=== PATIENT | female | born 1995 | race Caucasian/White ===

== ENCOUNTER 2017-03-26 23:38 | Emergency (ER) | payer SELFPAY ==
[~2017-03-26] VITALS: Ht 162.6 cm; Wt 95.3 kg
[2017-03-26] MEDS ORDERED: HYDR10TA3 PO (23:44)
--- NOTE | 2017-03-27 00:15 | RADIOLOGY IMAGING REPORT ---
FACILITY: [facility] PATIENT NAME: María Salcedo : 1995 MR: [id number] V: [id number] EXAM DATE: ORDERING PHYSICIAN: ABHI FRAZIER TECHNOLOGIST: Location: [facility] Patient: María Salcedo : 1995 Visit/Account:[id number] Date of Sevice: 03/26/2017 HAND COMPLETE LEFT HISTORY: Injury to left third and fourth fingers and hand. COMPARISON: None. TECHNIQUE: PA, oblique, and lateral views of the left hand. FINDINGS: There is no fracture or dislocation. There is mild soft tissue swelling of the proximal fou rth phalanx. IMPRESSION: 1. No acute osseous abnormality of the left hand. Report Dictated By: Melissa Curtis at 03/27/2017 12:09 AM Report E-Signed By: Melissa Curtis at 03/27/2017 12:11 AM WSN:[id number]
[2017-03-27] MEDS ORDERED: DIPHTH/TETANUS/ACEL. PERTUSSIS IM ONLY ONE (00:35)
[2017-03-27] MEDS ORDERED: CEPHALEXIN MONO 500 MG CAP PO ONE (00:35)
[2017-03-27] MEDS ORDERED: CEPH500C24 PO (00:36)
--- NOTE | 2017-03-27 00:36 | ER Report ---
History and Physical Time Seen By MD: 23:44 Hx. of Stated Complaint: PT CRUSHED MIDDLE AND FOURTH FINGER OF LEFT HAND BETWEEN WALL AND BOOKSHELF. HPI/ROS CHIEF COMPLAINT: injury to hand and fingers HISTORY OF PRESENT ILLNESS: This is a 22 year old female. She was carrying a metal shelf and somehow it went one way causing an injury to her left hand and her 3rd and 4th fingers. Pain and swelling over the proximal phalanx of these fingers. Has a cut on the volar surface of the 4th finger. Normal sensation. Can move them, but hurts to do so. Last tetanus was 2011 or 2012. Allergies: Coded Allergies: No Known Drug Allergies (Unverified , 03/26/17) Home Meds Active Scripts Cephalexin Monohydrate (CEPHALEXIN) 500 Mg Cap, 500 MG PO Q6H, #20 CAP 0 Refills Prov:ABHI FRAZIER MD 03/27/17 Reported Medications Hydroxyzine Hcl (HYDROXYZINE HCL) 10 Mg Tablet, 10 MG PO QID Y for ANXIETY 03/26/17 Reviewed Nurses Notes: Yes Hx Substance Use Disorder: No Hx Alcohol Use: No Constitutional Vital Sign - Last 24 Hours 03/26/17 03/27/17 23:44 00:41 Temp 98.8 Pulse 104 85 Resp 14 16 B/P (MAP) 149/100 132/82 (99) Pulse Ox 97 92 O2 Delivery Room Air Room Air Physical Exam General: Alert, no acute distress. Musculoskeletal: Swelling with some bruising of the proximal phalanx of 3rd and 4th fingers, pain with palpation of this area and onto the hand over the metacarpals. Motor function is intact, but with pain. Normal flexion and extension strength/resistance. Skin: Shallow laceration just distal to the MCP joint of 4th finger. Neuro: Normal sensation. Cardiovascular: Normal capillary refill. Medical Decision Making EKG/Imaging Imaging HAND COMPLETE LEFT HISTORY: Injury to left third and fourth fingers and hand. COMPARISON: None. TECHNIQUE: PA, oblique, and lateral views of the left hand. FINDINGS: There is no fracture or dislocation. There is mild soft tissue swelling of the proximal fourth phalanx. IMPRESSION: 1. No acute osseous abnormality of the left hand. Report Dictated By: Melissa Curtis at 03/27/2017 12:09 AM ED Course/Re-evaluation ED Course Digital block was performed after imaging showed no fractures. Laceration was cleaned. It was very superficial and did not require repair. Discussed wound care and care for contusion. Tetanus booster was given. Decision to Disposition Date: Mar 27, 2017 Decision to Disposition Time: 00:34 Depart Departure Latest Vital Signs Vital Signs Date Time Temp Pulse Resp B/P (MAP) Pulse Ox O2 Delivery O2 Flow Rate FiO2 03/27/17 00:41 85 16 132/82 (99) 92 Room Air 03/26/17 23:44 98.8 Impression: Primary Impression: Finger contusion Additional Impression: Finger laceration Condition: Improved Disposition: HOME OR SELF-CARE New Scripts Cephalexin Monohydrate (CEPHALEXIN) 500 Mg Cap 500 MG PO Q6H, #20 CAP 0 Refills Prov: ABHI FRAZIER MD 03/27/17 Patient Instructions: Contusion in Adults (ED), Laceration Without Closure (ED) Additional Instructions: The laceration was very shallow and did not require closure. Wound Care: Wash the wound once a day with soap and water. Dry the wound and apply a small amount of antibiotic ointment with a clean dressing. If the dressing becomes wet or dirty, repeat cleaning and dressing as above. No soaking the wound; no swimming. Pain Control: Use Tylenol or ibuprofen for pain. Using and ice pack can help reduce swelling. Antibiotic: Cephalexin 500mg 4 times a day for 5 days. Problem Qualifiers Primary Impression: Finger contusion Encounter type: initial encounter Finger: ring finger Damage to nail status : without damage Laterality: left Qualified Codes: S60.042A - Contusion of left ring finger without damage to nail, initial encounter Additional Impression: Finger laceration Encounter type: initial encounter Finger: ring finger Damage to nail status : without damage Foreign body presence: without foreign body Laterality: left Qualified Codes: S61.215A - Laceration without foreign body of left ring finger without damage to nail, initial encounter ABHI FRAZIER MD Mar 27, 2017 00:36
[2017-03-27 00:41] VITALS: BP 132/82
== END 2017-03-27 01:10 | disposition home or self-care (01) ==
LOC: ER 23:41
DX: S60.042A Contusion of left ring finger without damage to nail, initial encounter (principal); S61.215A Laceration without foreign body of left ring finger without damage to nail, initial encounter; Z23 Encounter for immunization
CPT/HCPCS: 90471; 90715; 99282